=== PATIENT | female | born 1990 | race Caucasian/White ===

== ENCOUNTER 2016-11-17 12:30 | Emergency (ER) | payer OTHER ==
[~2016-11-17] VITALS: Ht 167.6 cm; Wt 81.8 kg
[2016-11-17 12:33] VITALS: BP 126/92; TEMP 97.1
[2016-11-17] MEDS ORDERED: ATARAX 25MG25 MG/TAB PO (12:37)
[2016-11-17] MEDS ORDERED: VOLTAREN 75 DR75 MG PO (13:09)
[2016-11-17 13:37] VITALS: PULSE 84
== END 2016-11-17 13:38 | disposition home or self-care (01) ==
LOC: COL.ER 12:30
DX: M94.0 Chondrocostal junction syndrome [Tietze] (principal); R09.1 Pleurisy